=== PATIENT | male | born 1995 | race Caucasian/White ===

== ENCOUNTER 2020-03-11 23:08 | Emergency (ER) | payer SELFPAY ==
[~2020-03-11] VITALS: Ht 177.8 cm; Wt 106.6 kg
--- NOTE | 2020-03-11 23:08 | NUR ---
PT BIB [facility], PREBOOK. TAKEN TO [facility]
[2020-03-11 23:12] VITALS: BP 148/78
[2020-03-11 23:15] VITALS: BP 148/78
--- NOTE | 2020-03-11 23:15 | NUR ---
25 YO M BIB [employer] FOR [employer]. PT WAS ARRESTED AT A DUI CHECKPOINT. PT PRESENTS WITH AN ORAL TEMP OF 100.6 AND TACCHYCARDIC AT 13. DENIES RECENT FEVER, COUGH, SOB, OR TRAVEL. . NKA NO MED HX NO RX
[2020-03-11] MEDS ORDERED: IBUPROFEN 600 MG TAB PO ONE (23:40)
[2020-03-11] MEDS ORDERED: ACETAMINOPHEN EXTRA STRENGTH 500 MG TAB PO ONE (23:40)
[2020-03-11] MEDS ORDERED: ACETAMINOPHEN EXTRA STRENGTH 500 MG TAB ONE (23:42)
--- NOTE | 2020-03-12 00:49 | NUR ---
pt discharged back to [facility] Officer Mando #[id number]
== END 2020-03-12 00:49 ==
LOC: MED 23:08
DX: R00.0 Tachycardia, unspecified (principal); R50.9 Fever, unspecified; F17.210 Nicotine dependence, cigarettes, uncomplicated; Z02.89 Encounter for other administrative examinations; Y90.9 Presence of alcohol in blood, level not specified
CPT/HCPCS: 99283